=== PATIENT | female | born 1940 | race Caucasian/White ===

== ENCOUNTER → 2020-07-15 | Day surgery (SDC) | payer OTHER ==
--- OUTSIDE RECORDS SUMMARY | 2020-07-15 08:28 | XMS REPORT | Clinical Summary ---
:1940 Author Organization [facility] Address [address] [place] [address] Care Team Providers Name Role Phone Asked, Pcp Primary Care Provider Unavailable Allergies Active Allergy Reactions Severity Noted Date Comments Ciprofloxacin Hives 06/19/2018 Sulfa (Sulfonamide Antibiotics) Rash Low 8 Medications Medication Sig Dispensed Refills Start Date End Date Status alendronate (FOSAMAX) 5 Take 5 mg by 0 Active MG tablet mouth once a week. Take in the morning with a full glass of water on an empty stomach, do NOT take anything else by mouth or lie down for the next 30 min. pravastatin (PRAVACHOL) Take 40 mg by 0 Active 40 MG tablet mouth daily. aspirin (ECOTRIN) 81 MG Take 81 mg by 0 Active enteric coated tablet mouth daily. cholecalciferol, Take 1,000 Units 0 Active vitamin D3, by mouth daily. (cholecalciferol) 1,000 unit tablet losartan (COZAAR) 25 MG Take 50 mg by 0 Active tablet mouth daily. levothyroxine Take 88 mcg by 0 A ctive (SYNTHROID, LEVOXYL) 88 mouth every mcg tablet morning. Active Problems Not on file Surgical History Surgery Date Site/Laterality Comments INSERT / REPLACE / REMOVE PACEMAKER CHOLECYSTECTOMY HERNIA REPAIR HYSTERECTOMY APPENDECTOMY CARDIAC ELECTROPHYSIOLOGY 06/19/2018 N/A Proced ure: Ep remove PROCEDURE replace pacemake r generator single ; Surgeon: Rachna miguel Jr., MD; Location: [facility] E Learning Specialist In[facility] e Location; Servi ce: Cardiology; Lat erality: N/A; Medical devices from this surgery are in t he Implants section . Medical History Medical History Date Comments AV block Cholelithiasis Hypothyroid Social History Tobacco Use Types Packs/Day Years Used Date Never Assessed Sex Assigned at Date Recorded Not on file Last Filed Vital Signs Not on file Plan of Treatment Not on file Implants Implanted Type [place] Device Shelf Model / Identifier Expiration Serial / Date Lot Ernestina Xt Mri - [id number] Cardiac Pacemaker N/A: [employer] [id number] / Implanted: 06/19/2018 at [facility] (Quantity not on file) Gen erators [employer] 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
--- NOTE | 2020-07-15 10:20 | RAD REPORT ---
EXAM DESCRIPTION: Ultrasound-guided vacuum assisted left breast core biopsy CLINICAL HISTORY: Breast mass R92.8 COMPARISON: BREAST/AXILLA, LIMITED dated 11/07/2017 FINDINGS: Informed consent was obtained and time-out was performed. The patient's left breast was prepped and draped in the usual sterile fashion. 1% lidocaine was used for local anesthetic purposes. Utilizing aseptic technique and ultrasound guidance, a 12 gauge vacuum assisted core biopsy device wa s used to obtain 2 core specimens through the mass of interest. A post biopsy clip was then placed. All collected material was sent for cytology. Patient tolerated procedure well. IMPRESSION: Successful ultrasound guided vacuum assisted left breast mass biopsy.
== END ==
LOC: DS 08:25
PROVIDERS: ATTEND Internal Medicine
DX: C50.912 Malignant neoplasm of unspecified site of left female breast (principal); Z17.0 Estrogen receptor positive status [ER+]
CPT/HCPCS: 19083; 88305